=== PATIENT | female | born 1985 | race American Indian/Alaskan Native ===

== ENCOUNTER 2019-01-20 08:30 | Emergency (ER) | payer MEDICAID ==
[2019-01-20 08:37] VITALS: BP 140/100
--- NOTE | 2019-01-20 10:26 | Emergency Department Report ---
ED ENT HPI - General Chief complaint: Sore Throat Stated complaint: SORE THROAT Time Seen by Provider: 01/20/19 10:20 Source: patient Mode of arrival: Ambulatory Limitations: No Limitations - History of Present Illness Initial comments: She is a 33-year-old female presents to ED complaining of sore throat 1 week. Patient states that pain is worsened by swallowing and eating food. 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 Patient denies any swelling to the throat or any injuries. She denies fever/cough/runny nose/nausea vomiting shortness of breath. MD complaint: sore throat - Related Data Previous Rx's Medication Instructions Recorded Last Taken Type Amoxicillin [Amoxicillin TAB] 875 mg PO BID #14 tablet 01/20/19 Unknown Rx Nystas/Diphen/Xyl Visc/Mylanta 30 ml PO TID #120 ml 01/20/19 Unknown Rx [Magic Mouthwash] Allergies Allergy/AdvReac Type Severity Reaction Status Date / Time No Known Allergies Allergy Unverified 01/20/19 08:31 ED Dental HPI - General Chief complaint: Sore Throat Stated complaint: SORE THROAT Time Seen by Provider: 01/20/19 10:20 Source: patient Mode of arrival: Ambulatory Limitations: No Limitations - Related Data Previous Rx's Medication Instructions Recorded Last Taken Type Amoxicillin [Amoxicillin TAB] 875 mg PO BID #14 tablet 01/20/19 Unknown Rx Nystas/Diphen/Xyl Visc/Mylanta 30 ml PO TID #120 ml 01/20/19 Unknown Rx [Magic Mouthwash] Allergies Allergy/AdvReac Type Severity Reaction Status Date / Time No Known Allergies Allergy Unverified 01/20/19 08:31 ED Review of Systems ROS: Stated complaint: SORE THROAT Other details as noted in HPI Comment: All other systems reviewed and negative ED Past Medical Hx - Past Medical History Previous Medical History?: No - Surgical History Additional Surgical History: KIDNEY STONES - Social History Smoking Status: Never Smoker Substance Use Type: Alcohol - Medications Home Medications: Home Medications Medication Instructions Recorded Confirmed Last Taken Type Amoxicillin [Amoxicillin TAB] 875 mg PO BID #14 tablet 01/20/19 Unknown Rx Nystas/Diphen/Xyl Visc/Mylanta 30 ml PO TID #120 ml 01/20/19 Unknown Rx [Magic Mouthwash] ED Physical Exam - General Limitations: No Limitations General appearance: alert, in no apparent distress - Head Head exam: Present: atraumatic, normocephalic - Eye Eye exam: Present: normal appearance - ENT ENT exam: Present: mucous membranes moist - Neck Neck exam: Present: normal inspection, full ROM, lymphadenopathy, other ([facility] erythema, exudate or swelling). Absent: tenderness - Respiratory Respiratory exam: Present: normal lung sounds bilaterally. Absent: respiratory distress - Cardiovascular Cardiovascular Exam: Present: regular rate, normal rhythm. Absent: systolic murmur, diastolic murmur, rubs, gallop - GI/Abdominal GI/Abdominal exam: Present: soft, normal bowel sounds - Extremities Exam Extremities exam: Present: normal inspection - Back Exam Back exam: Present: normal inspection - Neurological Exam Neurological exam: Present: alert, oriented X3 - Psychiatric Psychiatric exam: Present: normal affect, normal mood - Skin Skin exam: Present: warm, dry, intact, normal color. Absent: rash ED Course Vital Signs 01/20/19 08:34 Temperature 98.8 F Pulse Rate 97 H Respiratory 16 Rate Blood Pressure 140/100 O2 Sat by Pulse 99 Oximetry ED Medical Decision Making - Medical Decision Making 33-year-old female presents with pharyngitis. Vital signs are normal patient is in acute distress. Discussed antibiotic therapy and Magic mouthwash. Discussed follow-up with primary care physician. She is in no respiratory acute distress Critical care attestation.: If time is entered above; I have spent that time in minutes in the direct care of this critically ill patient, excluding procedure time. ED Disposition Clinical Impression: Pharyngitis Disposition: DC-01 TO HOME OR SELFCARE Is pt being admited?: No Does the pt Need Aspirin: No Condition: Stable Instructions: Pharyngitis (ED), Tonsillitis (ED) Additional Instructions: Make sure to follow up with the primary care physician as discussed. Take all your medications as you've been prescribed. If you have any worsening symptoms or develop new symptoms please return to ED immediately. Prescriptions: Amoxicillin [Amoxicillin TAB] 875 mg PO BID #14 tablet Nystas/Diphen/Xyl Visc/Mylanta [Magic Mouthwash] 30 ml PO TID #120 ml Referrals: [facility] [Outside] - 3-5 Days [facility] [Outside] - 3-5 Days Forms: Accompanied Note, Work/School Release Form(ED) Time of Disposition: 10:29
== END 2019-01-20 10:34 | disposition home or self-care (01) ==
LOC: ED 08:30
DX: J02.9 Acute pharyngitis, unspecified (principal)
CPT/HCPCS: 99282